=== PATIENT | male | born 2000 | race Two or more races ===

== ENCOUNTER 2020-07-22 10:30 | Emergency (ER) | payer MEDICAID ==
[~2020-07-22] VITALS: Ht 188 cm; Wt 62.0 kg
[2020-07-22] MEDS ORDERED: SODIUM CHLORIDE 0.9% 1,000 ML IV ONE (11:11)
[2020-07-22 11:56] LABS: BASOPHILS % 0.5 % (0.0-2.0); EOSINOPHILS % 0.2 % (0.0-5.0); HEMATOCRIT. 47.9 % (42.0-52.0); HEMOGLOBIN. 16.2 g/dL (14.0-18.0); MEAN CORPUSCULAR HEMOGLOBIN 30.7 pg (28.0-32.0); MEAN CORPUSCULAR VOLUME 90.4 fL (80.0-94.0); MEAN PLATELET VOLUME 9.2 fl (7.4-10.4); MONOCYTES % 5.6 % (2.0-8.0); NEUTROPHILS % 61.7 % (40.0-76.0); PLATELET 271 x1000/uL (130-400)
[2020-07-22 12:04] LABS: CHLORIDE 106 mEq/L (98-107)
[2020-07-22 15:18] VITALS: BP 125/70
== END 2020-07-22 15:33 | disposition home or self-care (01) ==
LOC: ER 10:30
DX: R55 Syncope and collapse (principal); R94.31 Abnormal electrocardiogram [ECG] [EKG]
CPT/HCPCS: 36415; 71045; 76870; 80053; 83735; 84484; 85025; 93005; 93976; 96360; 99285; J7030